=== PATIENT | male | born 1975 ===

== ENCOUNTER 2020-02-10 07:18 | Outpatient (CLI) | payer OTHER, SELFPAY ==
--- NOTE | 2020-03-09 00:01 | WPDHOMESLEEP ---
Sleep Study - Home Date of Study: 02/10/20 Ordering Provider: Stephanie Acevedo MD Interpreting Physician: Stephanie Acevedo MD Home Sleep Study Type: Apnea Link Air Height: 1.91 m Weight: 111.13 kg Body Mass Index: 30.6 [place]: 10 Reason for Sleep Study Loud snoring and witnessed apneas Sleep History Brian Leonardo is a 44 yo man with HTN referred by Dr. Arevalo for loud snoring, witnessed apneas and restless sleep. His says that he snores very loudly, and that he has stopped breathing at night for 15 seconds or longer. He has lost 55 lb since May, and this has improved his symptoms. His snoring is better. His sleep quality is poor overall. He does not wake feeling refreshed in the am, is tired, however is too busy to take a nap. He tele-works from home every other day; he works in the [employer] field. he frequently sweats excessively at night where Serenity notices his heart pounding or beating irregularly night. He rarely falls asleep during the day. He denies falling asleep involuntarily or while driving. He does not have loss of muscle tone with strong emotion. He does not have daytime difficulties due to excessive sleepiness and does not have paralysis on waking or falling asleep. He does not have vivid dreamlike scenes upon awakening or falling asleep. He has never free to go to sleep. He rarely has nightmares. Occasionally he remembers his dreams. He occasionally has racing thoughts. He rarely feels sad depressed or anxious. He rarely has muscular tension. He occasionally notices parts of his body jerking. He does not kick at night. He does not have crawling and aching feelings in his legs and he does not have leg pain at night. He denies morning jaw pain rarely grinds his teeth at night. He occasionally is bothered by pain during the day rarely is awakened by pain at night. He frequently wakes up feeling stiff in the morning was sore achy muscles and pain in the neck and spine. He coaches softball some afternoons, 1-2 hours, stays busy and active. Bedtime is between 9-10 pm, waking 4:45 am, hitting snooze button 3 times before getting up at 5:05 am. He has nocturia 1 x at night around 1 am. If he happens to have nocturia later at 4 :00 am, he is not always able to get back to sleep. He does not have dreams every night. He may nap on the weekends, anywhere between 3-4 hours. He drinks caffeine in the morning, 44 oz Mountain Dew which lasts all day. When he drives long distances between 4-6 hours, he does become drowsy. He will rib puller at a gas station, get out, drink caffeine, thus breaking the trip up in to small segments. He is a restless sleeper, turns from side to side. He has pain on the left shoulder with sleeping and occasionally his low back. His memory and concentration are adequate, however he says that his would call him irritable at times. He can recall an IP address, but forgets what she tells him, and he may forget what she asks him to do. He has a brother on CPAP. [facility] Past Medical History Medical History Fungal infection of toenail HTN (hypertension) Seasonal allergic rhinitis Surgical History Surgical History H/O wisdom tooth extraction Family History Family History Father Lung cancer Mother Recurrent strokes Aneurysm Hypertension Sibling Hypertension Social History Social History Smoking status: Never smoker Tobacco type: smokeless tobacco Smokeless tobacco user: chewing tobacco Additional smoking assessment comments: Stopped smoking in December 2016 Alcohol intake: current Substance use: never Additional occupation/education comments: Gender identity (if verbalized by the patient): Male Medications Home Medications Medica
[2020-03-09 00:17] VITALS: BMI 30.6
== END 2020-02-10 07:19 | disposition home or self-care (01) ==
LOC: ANHCSM 07:19
PROVIDERS: Visit Provider Internal Medicine Critical Care Medicine
DX: G47.33 Obstructive sleep apnea (adult) (pediatric) (principal)
CPT/HCPCS: 95806